=== PATIENT | male | born 1960 | race Caucasian/White ===

== ENCOUNTER 2017-06-12 15:08 | Emergency (ER) | payer SELFPAY ==
[~2017-06-12 15:08] MED LIST: Iopamidol 370 76% 100 ML VIAL ONE
[2017-06-12 15:53] LABS: #Basophils 0.1 thou/uL (0.0-0.2); #Lymphocytes 1.3 thou/uL (1.20-3.40); #Monocytes 0.5 thou/uL (0.11-0.59); #Neutrophils 4.7 thou/uL (1.40-6.50); %Basophils 0.8 % (0.0-1.0); %Eosinophils 0.7 % (0.0-10.0); %Lymphocytes 19.1 % (21.0-51.0); %Monocytes 7.8 % (0.0-10.0); %Neutrophils 71.6 % (42.0-75.0); Hemoglobin 15.4 g/dL (14.0-18.0); Mean Corpuscular HGB CONC 34.1 g/dL (32.0-36.0); Mean Corpuscular Hemoglobin 33.7 pg (27.0-31.0); Mean Corpuscular Volume 98.7 fl (80.0-94.0); Mean Platelet Volume 6.2 fL (7.4-10.4); Platelet Count 290 thou/uL (130-400); RBC Distribution Width 10.2 % (11.5-14.5); Red Blood Cell (RBC) Count 4.59 mill/uL (4.70-6.10); White Blood Cell (WBC) Count 6.5 thou/uL (4.8-10.8)
[2017-06-12 16:07] LABS: ALT (SGPT) 27 U/L (8-55); AST (SGOT) 21 U/L (5-34); Albumin 3.6 g/dL (3.5-5.0); Alkaline Phosphatase 152 U/L (40-150); Anion Gap 17 mmol/L (10-20); BUN (Urea Nitrogen) 12 mg/dL (8.4-25.7); Bilirubin, Total 0.5 mg/dL (0.2-1.2); Calc. Creatinine Clearance 0 mL/min (70-130); Calcium 9.8 mg/dL (7.8-10.44); Carbon Dioxide 26 mmol/L (22-29); Chloride 92 mmol/L (98-107); Estimated GFR-MDRD 76; Globulin 3.6 g/dL (2.4-3.5); Glucose 509 mg/dL (70-105); Protein, Total 7.2 g/dL (6.0-8.3); Sodium 131 mmol/L (136-145)
[2017-06-12] MEDS ORDERED: Sodium Chloride 0.9% 100 ML ONE (16:21)
[2017-06-12] MEDS ORDERED: Piperacillin/Tazobactam 3.375 GM VIAL ONE (16:21)
[2017-06-12] MEDS ORDERED: Insulin Regular 300 UNITS/3 ML VIAL ONE (16:45)
[2017-06-12 16:49] LABS: Bilirubin Negative (Negative); Blood, Urine Negative (Negative); Clarity Clear (Clear); Glucose, Urine (Dipstick) 500 mg/dL (Negative); Leukocyte Negative (Negative); Nitrite Negative (Negative); Protein, Urine (Dipstick) Negative (Neg-Trace)
[2017-06-12 16:51] LABS: Specific Gravity, Urine 1.028 (1.005-1.030)
--- NOTE | 2017-06-12 22:59 | CT ---
CT ABDOMEN AND PELVIS WITH CONTRAST: 06/12/[address] of the abdomen and pelvis was done for evaluation of an apparent right groin infection. Ax ial slices were acquired after giving IV contrast. Coronal reconstructions are then done. Soft tissue swelling and thickening are seen in the right side of the scrotum. Several of the images show a few tiny pockets of soft tissue gas associated with this area. This would imply the possibil ity of a severe infection and entities such as necrotizing fasciitis come to mind. There may be hydr oceles bilaterally in the scrotum. An ultrasound would be much better for confirmation. The remainder of the exam showed no acute changes. The lung bases are clear. The liver, spleen, panc reas, gallbladder, adrenal glands, kidneys, and abdominal aorta showed no acute findings. The bowel is nondistended. There is no sign of obstruction. No free air or free fluid was seen. The appendix a ppears normal. CT of the pelvis showed no pelvic masses, fluid collections, or other acute changes. Degenerative ch anges are seen in the lower lumbar spine. IMPRESSION: 1. Right sided scrotal soft tissue swelling with the presence of some soft tissue gas in the vi cinity of the spermatic cord. Severe soft tissue infection such as necrotizing fasciitis should be c onsidered. 2. Probable bilateral hydroceles. 3. The abdominal and pelvic cavities were benign in appearance. Findings and recommendations for urgent referral discussed with Dr. Anna at 1631 on 06/12/17. POS: HOME
== END 2017-06-12 18:20 | disposition short-term general hospital (02) ==
LOC: BURERS 15:08
DX: N47.1 Phimosis (principal); N48.89 Other specified disorders of penis; F17.210 Nicotine dependence, cigarettes, uncomplicated
CPT/HCPCS: 36416; 74177; 80053; 81003; 83605; 85025; 85652; 86140; 87040; 96365; 96367; 96375; A4216; J1815; J2543; J3370; J7050

== ENCOUNTER 2018-01-27 16:40 | Emergency (ER) | payer SELFPAY ==
[2018-01-27 17:10] LABS: Band 1 % (5-11); Eosinophils 1 % (0-10); Hemoglobin 16.8 g/dL (14.0-18.0); Lymphocytes 28 % (21-51); MDiff Complete? YES; Mean Corpuscular HGB CONC 36.4 g/dL (32.0-36.0); Mean Corpuscular Hemoglobin 32.8 pg (27.0-31.0); Mean Platelet Volume 6.2 fL (7.4-10.4); Monocytes 5 % (0-10); Neutrophil 65 % (42-75); Platelet Count 218 thou/uL (130-400); RBC Distribution Width 10.9 % (11.5-14.5); Red Blood Cell (RBC) Count 5.13 mill/uL (4.70-6.10); White Blood Cell (WBC) Count 7.5 thou/uL (4.8-10.8)
[2018-01-27 17:24] LABS: Anion Gap 18 mmol/L (10-20); BUN (Urea Nitrogen) 9 mg/dL (8.4-25.7); Carbon Dioxide 20 mmol/L (22-29); Chloride 104 mmol/L (98-107); Estimated GFR-MDRD 87; Potassium 3.7 mmol/L (3.5-5.1); Sodium 139 mmol/L (136-145)
[2018-01-27 17:25] LABS: Albumin 4.1 g/dL (3.5-5.0); Bilirubin, Total 0.4 mg/dL (0.2-1.2); Calc. Creatinine Clearance 86 mL/min (70-130); Calcium 9.2 mg/dL (7.8-10.44); Globulin 3.2 g/dL (2.4-3.5); Glucose 111 mg/dL (70-105); Protein, Total 7.3 g/dL (6.0-8.3)
[2018-01-27 17:26] LABS: ALT (SGPT) 41 U/L (8-55); AST (SGOT) 30 U/L (5-34); Alcohol 144 mg/dL (Less than 10); Alkaline Phosphatase 92 U/L (40-150); Lipase 38 U/L (8-78)
[2018-01-27 17:29] LABS: CKMB 0.7 ng/mL (0-6.6); Troponin I Less than 0.010 ng/mL (< 0.028)
--- NOTE | 2018-01-27 21:38 | CT ---
CT BRAIN WITHOUT CONTRAST: 01/27/2018 COMPARISON: 10/20/2017 FINDINGS: Again noted is a lacunar infarct in the internal capsule on the left side. There are also several pa tchy low density areas in the deep white matter, bilaterally, particularly the left parietal and left frontal regions. There are no findings strongly suggestive of acute stroke, though MRI would be mor e sensitive at picking up such. There is no bleeding, mass, or edema. The ventricular sizes are nor mal for age. IMPRESSION: Multiple old strokes and ischemic areas but no definite acute findings. Preliminary report called to Dr. Lino at 1651 hours on 01/27/2018. CODE CR POS: HOME
[2018-01-29 06:57] LABS: Prothrombin Time 12.6 SEC (12.0-14.7)
[2018-01-29 06:58] LABS: INR-International Normal Ratio 0.9; PTT 29.5 SEC (22.9-36.1)
== END 2018-01-27 17:56 | disposition short-term general hospital (02) ==
LOC: BURERS 16:40
DX: I63.9 Cerebral infarction, unspecified (principal); E11.9 Type 2 diabetes mellitus without complications; E78.5 Hyperlipidemia, unspecified; I10 Essential (primary) hypertension; F17.210 Nicotine dependence, cigarettes, uncomplicated; Z79.84 Long term (current) use of oral hypoglycemic drugs; Z79.899 Other long term (current) drug therapy
CPT/HCPCS: 36415; 36416; 70450; 80053; 80307; 82150; 82553; 83690; 83880; 84484; 85025; 85610; 85730; 96365; 96376; J2997

== ENCOUNTER → 2019-05-17 | Emergency (ER) | payer SELFPAY ==
[~2019-05-17] MED LIST changes: +Aspirin Chewable 81 MG TAB ONE; -Iopamidol 370 76% 100 ML VIAL ONE; +Morphine 4 MG/ML VIAL ONE; +Nitroglycerin 0.4 MG TAB 1 EACH ONE; +diphenhydrAMINE 12.5 MG/5 ML UDCUP ONE; +diphenhydrAMINE 50 MG/ML VIAL ONE
[2019-05-17 12:43] LABS: ALT (SGPT) 17 U/L (8-55); AST (SGOT) 15 U/L (5-34); Albumin 4.2 g/dL (3.5-5.0); Alkaline Phosphatase 74 U/L (40-150); Anion Gap 15 mmol/L (10-20); BUN (Urea Nitrogen) 7 mg/dL (8.4-25.7); Bilirubin, Total 0.4 mg/dL (0.2-1.2); CK (CPK) 32 U/L (30-200); Calc. Creatinine Clearance 0 mL/min (70-130); Calcium 9.3 mg/dL (7.8-10.44); Carbon Dioxide 26 mmol/L (22-29); Chloride 101 mmol/L (98-107); Estimated GFR-MDRD Greater than 90; Glucose 82 mg/dL (70-105); Lipase 54 U/L (8-78); Potassium 4.2 mmol/L (3.5-5.1); Protein, Total 7.2 g/dL (6.0-8.3); Sodium 138 mmol/L (136-145)
[2019-05-17 12:48] LABS: Eosinophils 3 % (0-10); Hemoglobin 14.6 g/dL (14.0-18.0); Lymphocytes 33 % (21-51); MDiff Complete? YES; Mean Corpuscular Hemoglobin 30.5 pg (27.0-31.0); Mean Corpuscular Volume 95.5 fL (78.0-98.0); Mean Platelet Volume 6.7 fL (7.4-10.4); Monocytes 9 % (0-10); Neutrophil 55 % (42-75); Platelet Count 245 thou/uL (130-400); RBC Distribution Width 12.4 % (11.5-14.5); Red Blood Cell (RBC) Count 4.79 mill/uL (4.70-6.10); White Blood Cell (WBC) Count 9.9 thou/uL (4.8-10.8)
[2019-05-17 12:55] LABS: Bilirubin Negative (Negative); Blood, Urine Negative (Negative); Clarity Clear (Clear); Glucose, Urine (Dipstick) Negative (Negative); Leukocyte Negative (Negative); Nitrite Negative (Negative); Protein, Urine (Dipstick) Negative (Neg-Trace); Urobilinogen 0.2 mg/dL (Less than 2)
[2019-05-17 13:02] LABS: Amphetamine Not Detected (NotDetected); Barbiturates Screen Not Detected (NotDetected); Benzodiazepine Screen Not Detected (NotDetected); Cocaine Metabolite Screen Not Detected (NotDetected); Medtox Control Line Valid? VALID (VALID); Methadone Not Detected (NotDetected); Methamphetamine Not Detected (NotDetected); Opiate Screen Detected (NotDetected); Oxycodone Screen Not Detected (NotDetected); Phencyclidine (PCP) Not Detected (NotDetected); THC/Cannabinoid Screen Not Detected (NotDetected); Tricyclic Screen Not Detected (NotDetected)
--- NOTE | 2019-05-17 21:31 | RAD ---
PORTABLE CHEST: 05/17/19 Comparison is made with a 01/06/19 study. The heart is mildly enlarged but no different than before. There is no vascular congestion, edema, or pleural effusion. A prominent fat pad is suggested in the right cardiophrenic angle. An azygos lobe is seen in the right upper lung. IMPRESSION: No acute findings. POS: HOME
== END ==
LOC: BURERS 11:41
DX: R07.9 Chest pain, unspecified (principal); E78.00 Pure hypercholesterolemia, unspecified; E78.5 Hyperlipidemia, unspecified; E11.9 Type 2 diabetes mellitus without complications; Z79.4 Long term (current) use of insulin; I10 Essential (primary) hypertension; Z86.73 Personal history of transient ischemic attack (TIA), and cerebral infarction without residual deficits; F17.210 Nicotine dependence, cigarettes, uncomplicated; Z79.899 Other long term (current) drug therapy; Z79.84 Long term (current) use of oral hypoglycemic drugs
CPT/HCPCS: 36416; 71045; 80053; 80306; 80307; 81003; 82550; 83690; 84484; 85025; 93005; 96374; 96375; J1200; J2270; Q0163

== ENCOUNTER 2019-12-10 11:35 | Emergency (ER) | payer OTHER, SELFPAY ==
[2019-12-10 12:12] LABS: #Basophils 0.1 thou/uL (0.0-0.2); #Eosinphils 0.1 thou/uL (0.0-0.7); #Lymphocytes 1.8 thou/uL (1.20-3.40); #Monocytes 0.6 thou/uL (0.11-0.59); %Basophils 0.9 % (0.0-1.0); %Eosinophils 1.2 % (0.0-10.0); %Lymphocytes 19.1 % (21.0-51.0); %Monocytes 6.4 % (0.0-10.0); %Neutrophils 72.5 % (42.0-75.0); Hemoglobin 16.7 g/dL (14.0-18.0); Mean Corpuscular HGB CONC 33.1 g/dL (32.0-36.0); Mean Corpuscular Hemoglobin 31.5 pg (27.0-31.0); Platelet Count 251 thou/uL (130-400); Red Blood Cell (RBC) Count 5.32 mill/uL (4.70-6.10); White Blood Cell (WBC) Count 9.6 thou/uL (4.8-10.8)
[2019-12-10 12:24] LABS: Bilirubin Negative (Negative); Blood, Urine Negative (Negative); Clarity Clear (Clear); Glucose, Urine (Dipstick) Negative (Negative); Leukocyte Negative (Negative); Nitrite Negative (Negative); Protein, Urine (Dipstick) Negative (Neg-Trace); Urobilinogen 0.2 mg/dL (Less than 2)
[2019-12-10 12:27] LABS: Anion Gap 15 mmol/L (10-20); BUN (Urea Nitrogen) 6 mg/dL (8.4-25.7); Calc. Creatinine Clearance 0 mL/min (70-130); Calcium 9.5 mg/dL (7.8-10.44); Carbon Dioxide 27 mmol/L (22-29); Chloride 102 mmol/L (98-107); Estimated GFR-MDRD Greater than 90; Glucose 77 mg/dL (70-105); Potassium 4.2 mmol/L (3.5-5.1); Sodium 140 mmol/L (136-145)
== END 2019-12-10 12:56 | disposition home or self-care (01) ==
LOC: BURERS 11:35
DX: M79.89 Other specified soft tissue disorders (principal); R60.0 Localized edema; E11.9 Type 2 diabetes mellitus without complications; I10 Essential (primary) hypertension; E78.00 Pure hypercholesterolemia, unspecified; E78.5 Hyperlipidemia, unspecified; F17.210 Nicotine dependence, cigarettes, uncomplicated; Z86.73 Personal history of transient ischemic attack (TIA), and cerebral infarction without residual deficits; Z79.4 Long term (current) use of insulin; Z79.891 Long term (current) use of opiate analgesic; Z79.899 Other long term (current) drug therapy; Z79.84 Long term (current) use of oral hypoglycemic drugs
CPT/HCPCS: 36415; 80048; 81003; 85025; 85379; 99283

== ENCOUNTER 2024-10-06 16:46 | Outpatient (CLI) | payer OTHER | END 2024-10-06 16:47 | disposition home or self-care (01) | LOC: BURRAD 16:46 | PROVIDERS: ATTEND Nurse Practitioner Family | DX: M79.671 Pain in right foot (principal); M79.89 Other specified soft tissue disorders ==